=== PATIENT | male | born 2000 | race Caucasian/White ===

== ENCOUNTER 2021-09-23 17:41 | Emergency (ER) | payer OTHER, SELFPAY ==
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
[2021-09-23 17:55] VITALS: BP 128/95; PULSE 116; RESP 16; TEMP 36.6; O2SAT 100
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
[2021-09-23] MEDS: KETOROLAC (*BKC) 60 MG/2 ML VIAL IM (19:37)
--- NOTE | 2021-09-23 19:38 | PC.NURSE ---
Assumed care of pt at this time. Pt is in CT scan and XRAY per Tony RN, when arrived back from imaging gave ordered IM medication. Pt is alert and upright. VSS.
[2021-09-23 19:41] VITALS: BP 139/74; PULSE 88; RESP 15; O2SAT 100
[2021-09-23 21:30] VITALS: BP 141/89; PULSE 79; RESP 18; O2SAT 100
== END 2021-09-23 21:32 | disposition home or self-care (01) ==
PROVIDERS: Emergency Provider Emergency Medicine
DX: S62.144A Nondisplaced fracture of body of hamate [unciform] bone, right wrist, initial encounter for closed fracture (principal); S16.1XXA Strain of muscle, fascia and tendon at neck level, initial encounter; K21.9 Gastro-esophageal reflux disease without esophagitis; V49.40XA Driver injured in collision with unspecified motor vehicles in traffic accident, initial encounter
CPT/HCPCS: 29125; 72125; 72131; 73030; 73130; 96372; 99284; J1885